=== PATIENT | female | born 1955 | race Two or more races ===

== ENCOUNTER 2017-04-10 23:48 | Emergency (ER) | payer OTHER ==
[~2017-04-10] VITALS: Ht 157.5 cm; Wt 117.9 kg
--- OUTSIDE RECORDS SUMMARY | ~2017-04-10 | XMS ---
Demographics + + + | Address | [address] | | | [place] [address] | + + + | Preferred Language | Unknown | + + + | Marital Status | Unknown | + + + | Cheondoism Affiliation | Unknown | + + + | Race | Unknown | + + + | Ethnic Group | Unknown | + + + Author + + + | Author | [facility] | + + + | Organization | [facility] | + + + | Address | [address] | | | [place] [address] | + + + | Phone | | + + + Care Team Providers + + + + | Care Card Folder Name | Role | Phone | + + + + Unavailable | Unavailable | + + + + PROBLEMS +---------+ + + +--------+ + + | Type | Condition | ICD9-CM | [id number] | Onset | Condition | SNOMED | | | | Code | Code | Dates | Status | Code | +---------+ + + +--------+ + + | Problem | Morbid | Z68.42 | | | Active | 148194514 | | | obesity | | | | | | | | with BMI | | | | | | | | of | | | | | | | | 45.0-49.9, | | | | | | | | adult | | | | | | +---------+ + + +--------+ + + | Problem | ASTHMA NOS | 493.90 | | | Active | 513484897 | +---------+ + + +--------+ + + | Problem | Depression | | F32.9 | | Active | 011713663 | +---------+ + + +--------+ + + | Problem | Asthma | | J45.909 | | Active | 653774919 | +---------+ + + +--------+ + + | Problem | Asthma | J45.901 | | | Active | 807076189 | | | with | | | | | | | | exacerbati | | | | | | | | on | | | | | | +---------+ + + +--------+ + + | Problem | GERD | | K21.9 | | Active | [id number] | | | (gastroeso | | | | | | | | phageal | | | | | | | | reflux | | | | | | | | disease) | | | | | | +---------+ + + +--------+ + + | Problem | Hyperlipid | | E78.5 | | Active | 40049415 | | | emia | | | | | | +---------+ + + +--------+ + + | Problem | Left ankle | | M25.572 | | Active | 813923451 | | | pain | | | | | | +---------+ + + +--------+ + + ALLERGIES Unknown Allergies SOCIAL HISTORY No smoking Hx information available PLAN OF CARE VITAL SIGNS MEDICATIONS + + + + + + + +--------+ | Medicati | Instruct | Dosage | Frequenc | Start | End Date | Duration | Status | | on | ions | | y | Date | | | | + + + + + + + +--------+ | Xyzal 5 | | TAKE 1 | | | | | Active | | MG | | TABLET | | | | | | | | | BY MOUTH | | | | | | | | | EVERY | | | | | | | | | EVENING. | | | | | | + + + + + + + +--------+ | Prilosec | | TAKE ONE | | | | | Active | | 20 MG | | CAPSULE | | | | | | | | | BY | | | | | | | | | MOUTH | | | | | | | | | EVERY | | | | | | | | | DAY | | | | | | + + + + + + + +--------+ | Multivit | | | | | | | Active | | robertson | | | | | | | | | Adults | | | | | | | | | 50+ | | | | | | | | + + + + + + + +--------+ | Prilosec | Orally | 1 tablet | 24h | | | 30 days | Active | | OTC 20 | Once a | | | | | | | | MG | day | | | | | | | + + + + + + + +--------+ | Proventi | Inhalati | 2 puffs | | | | 30 days | Active | | l HFA | on q4 | | | | | | | | 108 (90 | hours | | | | | | | | Base) | PRN | | | | | | | | MCG/ACT | wheezing | | | | | | | | | /SOB | | | | | | | + + + + + + + +--------+ | Serevent | Inhalati | 1 puff | 12h | 01 Apr, | | 30 days | Active | | Diskus | on Twice | | | 2016 | | | | | 50 | a day | | | | | | | | MCG/DOSE | | | | | | | | + + + + + + + +--------+ | Calcium | Orally | 1 tablet | 12h | | | | Active | | + D | Twice a | with | | | | | | | 315-200 | day | meals | | | | | | | MG-UNIT | | | | | | | | + + + + + + + +--------+ | Aspir-81 | Orally | 1 tablet | 24h | | | | Active | | 81 MG | Once a | | | | | | | | | day | | | | | | | + + + + + + + +--------+ | Nebulize | | as | | 11 Sep, | | 90 days | Active | | r/Tubing | | directed | | 2016 | | | | | /Mouthpi | | | | | | | | | brian - | | | | | | | | + + + + + + + +--------+ | Vitamin | Orally | 1 | 24h | | | | Active | | E 400 | Once a | capsule | | | | | | | UNIT | day | | | | | | | + + + + + + + +--------+ | Albutero | Inhalati | 3 ml | | 01 Apr, | | | Active | | l | on q4 | | | 2016 | | | | | Sulfate | hour PRN | | | | | | | | (2.5 | | | | | | | | | MG/3ML) | wheezing | | | | | | | | 0.083% | /SOB | | | | | | | + + + + + + + +--------+ RESULTS No Results PROCEDURES No Known procedures IMMUNIZATIONS No Known Immunizations"
--- OUTSIDE RECORDS SUMMARY | ~2017-04-10 | XMS ---
Demographics + + + | Address | [address] | | | [place] [address] | + + + | Preferred Language | Unknown | + + + | Marital Status | Unknown | + + + | Church Affiliation | Unknown | + + + | Race | Unknown | + + + | Ethnic Group | Unknown | + + + Author + + + | Author | [facility] | + + + | Organization | [facility] | + + + | Address | [address] | | | [place] [address] | + + + | Phone | | + + + Care Team Providers + + + + | Care Brakeshoe Repairer Name | Role | Phone | + + + + Unavailable | Unavailable | + + + + PROBLEMS +---------+ + + +--------+ + + | Type | Condition | ICD9-CM | [id number] | Onset | Condition | SNOMED | | | | Code | Code | Dates | Status | Code | +---------+ + + +--------+ + + | Problem | Morbid | Z68.42 | | | Active | 193220765 | | | obesity | | | [...] | 493.90 | | | Active | 509545110 | +---------+ + + +--------+ + + | Problem | Depression | | F32.9 | | Active | 667302393 | +---------+ + + +--------+ + + | Problem | Asthma | | J45.909 | | Active | 020547058 | +---------+ + + +--------+ + + | Problem | Asthma | J45.901 | | | Active | 539050653 | | | with | | | | | | | | exacerbati | | | | | | | | on | | | | | | +---------+ + + +--------+ + + | Problem | GERD | | K21.9 | | Active | 515321447 | | | (gastroeso | | | | | | | | phageal | | | | | | | | reflux | | | | | | | | disease) | | | | | | +---------+ + + +--------+ + + | Problem | Hyperlipid | | E78.5 | | Active | 39700119 | | | emia | | | | | | +---------+ + + +--------+ + + | Problem | Left ankle | | M25.572 | | Active | 741453264 | | | pain | | | | | | +---------+ + + +--------+ + + ALLERGIES Unknown Allergies SOCIAL HISTORY No smoking Hx information available PLAN OF CARE VITAL SIGNS MEDICATIONS Unknown Medications RESULTS No Results PROCEDURES No Known procedures IMMUNIZATIONS No Known Immunizations"
--- OUTSIDE RECORDS SUMMARY | ~2017-04-10 | XMS ---
Demographics + + + | Address | [address] | | | [place] [address] | + + + | Preferred Language | Unknown | + + + | Marital Status | Unknown | + + + | Moravian Affiliation | Unknown | + + + | Race | Unknown | + + + | Ethnic Group | Unknown | + + + Author + + + | Author | [facility] | + + + | Organization | [facility] | + + + | Address | [address] | | | [place] [address] | + + + | Phone | | + + + Care Team Providers + + + + | Care Artificial Flower Maker Name | Role | Phone | + + + + Unavailable | Unavailable | + + + + PROBLEMS +---------+ + + +--------+ + + | Type | Condition | ICD9-CM | [id number]-YF | Onset | Condition | SNOMED | | | | Code | Code | Dates | Status | Code | +---------+ + + +--------+ + + | Problem | ASTHMA NOS | 493.90 | | | Active | 284206345 | +---------+ + + +--------+ + + | Problem | Asthma | | J45.909 | | Active | 720680119 | +---------+ + + +--------+ + + | Problem | Hyperlipid | | E78.5 | | Active | 55355002 | | | emia | | | | | | +---------+ + + +--------+ + + | Problem | GERD | | K21.9 | | Active | 663070615 | | | (gastroeso | | | | | | | | phageal | | | | | | | | reflux | | | | | | | | disease) | | | | | | +---------+ + + +--------+ + + | Problem | Morbid | Z68.42 | | | Active | 836484514 | | | obesity | | | [...] | | M25.572 | | Active | 030291144 | | | pain | | | | | | +---------+ + + +--------+ + + | Problem | Asthma | J45.901 | | | Active | 947643334 | | | with | | | | | | | | exacerbati | | | | | | | | on | | | | | | +---------+ + + +--------+ + + ALLERGIES + + + + +--------+ | Substance | Reaction | Event Type | Date | Status | + + + + +--------+ | Penicillin | anaphylactic | Drug Allergy | Oct, | Active | + + + + +--------+ | Sulfa | hives | Drug Allergy | Oct, | Active | + + + + +--------+ SOCIAL HISTORY No smoking Hx information available PLAN OF CARE + +---------+ | Activity | Details | + +---------+ +---+ | | +---+ + + + | Follow Up | prn Reason:null | + + + VITAL SIGNS + + + + | Height | 62 in | 2016-11-08 | + + + + | Weight | 255.6 lbs | 2016-11-08 | + + + + | BMI | 46.74 kg/m2 | 2016-11-08 | + + + + | Temperature | 98.1 degrees Fahrenheit | 2016-11-08 | + + + + | Heart Rate | 84 /min | 2016-11-08 | + + + + | Blood pressure systolic | 132 mm Hg | 2016-11-08 | + + + + | Blood pressure diastolic | 92 mm Hg | 2016-11-08 | + + + + MEDICATIONS + + + + + + + +--------+ | Medicati | Instruct | Dosage | Frequenc | Start | End Date | Duration | Status | | on | ions | | y | Date | | | | + + + + + + + +--------+ | Serevent | Inhalati | 1 puff | 12h | 01 Jun, | | 30 days | Active | [...] + + +--------+ RESULTS No Results PROCEDURES + + + + + | Procedure | Date Ordered | Related Diagnosis | Body Site | + + + + + | Est Level III | Nov 08, 2016 | | | | Intermediate | | | | + + + + + | DSCHRG MED/CURRENT | Nov 08, 2016 | | | | MED MERGE | | | | + + + + + | DOC MEDS VERIFIED | Nov 08, 2016 | | | | W/PT OR RE | | | | + + + + + IMMUNIZATIONS No Known Immunizations"
--- OUTSIDE RECORDS SUMMARY | ~2017-04-10 | XMS ---
Demographics + + + | Address | [address] | | | [place] [address] | + + + | Preferred Language | Unknown | + + + | Marital Status | Unknown | + + + | Amish Affiliation | Unknown | + + + | Race | Unknown | + + + | Ethnic Group | Unknown | + + + Author + + + | Author | [facility] | + + + | Organization | [facility] | + + + | Address | [address] | | | [place] [address] | + + + | Phone | | + + + Care Team Providers + + + + | Care Lacquer Mixer Name | Role | Phone | + + + + Unavailable | Unavailable | + + + + PROBLEMS +---------+ + + +--------+ + + | Type | Condition | ICD9-CM | IHJ16-SL | Onset | Condition | SNOMED | | | | Code | Code | Dates | Status | Code | +---------+ + + +--------+ + + | Problem | Morbid | Z68.42 | | | Active | 446409346 | | | obesity | | | [...] | 493.90 | | | Active | 829874065 | +---------+ + + +--------+ + + | Problem | Depression | | F32.9 | | Active | 310300025 | +---------+ + + +--------+ + + | Problem | Asthma | | J45.909 | | Active | 323982086 | +---------+ + + +--------+ + + | Problem | Asthma | J45.901 | | | Active | 718969171 | | | with | | | | | | | | exacerbati | | | | | | | | on | | | | | | +---------+ + + +--------+ + + | Problem | GERD | | K21.9 | | Active | 194792476 | | | (gastroeso | | | | | | | | phageal | | | | | | | | reflux | | | | | | | | disease) | | | | | | +---------+ + + +--------+ + + | Problem | Hyperlipid | | E78.5 | | Active | 20614477 | | | emia | | | | | | +---------+ + + +--------+ + + | Problem | Left ankle | | M25.572 | | Active | 930551808 | | | pain | | | [...] Inhalati | 1 puff | 12h | Jun, | | 30 days | Active | | Diskus | on Twice | | | 2015 | | | | | 50 | [...]
[~2017-04-10 23:48] MED LIST: ADVAIR 250-501 EACH INH; ALBUTEROL SULF8.5 GM INH
[2017-04-11] MEDS ORDERED: SYMBICORT 16010.2 GM INH (00:06)
[2017-04-11] MEDS ORDERED: ZOFRAN ODT4 MG PO (01:38)
[2017-04-11] MEDS ORDERED: NORCO 5-325 TA1 EACH PO (01:38)
== END 2017-04-11 02:21 | disposition home or self-care (01) ==
LOC: ED 23:48
DX: N13.2 Hydronephrosis with renal and ureteral calculous obstruction (principal); J45.909 Unspecified asthma, uncomplicated; Z88.0 Allergy status to penicillin; Z88.2 Allergy status to sulfonamides; Z79.899 Other long term (current) drug therapy
CPT/HCPCS: 74176; 80053; 81001; 83690; 85025; 96374; 96375; 99284; J1885; J2270; J2405; J7040

== ENCOUNTER 2021-06-18 17:14 | Emergency (ER) | payer OTHER ==
[~2021-06-18] VITALS: Ht 157.5 cm; Wt 108.9 kg
[~2021-06-18 17:14] MED LIST changes: +NORCO 5-325 TA1 EACH PO; +SYMBICORT 16010.2 GM INH; +ZOFRAN ODT4 MG PO
[2021-06-18] MEDS ORDERED: PRAVASTATIN SOD10 MG PO (19:51)
[2021-06-18] MEDS ORDERED: MOBIC15 MG PO (19:51)
[2021-06-18] MEDS ORDERED: HYDROCHLOROTH12.5 MG PO (19:52)
[2021-06-18] MEDS ORDERED: ALLERGY REL5 MG/5 ML PO (19:54)
[2021-06-18] MEDS ORDERED: OMEPRAZOLE20 MG PO (19:55)
[2021-06-18] MEDS ORDERED: FLEET ENEMA133 ML PR (22:34)
== END 2021-06-18 23:00 | disposition home or self-care (01) ==
LOC: ED 17:14
DX: K56.41 Fecal impaction (principal); I10 Essential (primary) hypertension; J45.909 Unspecified asthma, uncomplicated; Z88.0 Allergy status to penicillin; Z88.2 Allergy status to sulfonamides; Z79.899 Other long term (current) drug therapy
CPT/HCPCS: 36415; 74177; 80053; 83690; 85025; 99284-25; Q9967

== ENCOUNTER 2021-07-08 13:47 | Emergency (ER) | payer OTHER ==
[~2021-07-08] VITALS: Ht 157.5 cm; Wt 108.9 kg
[~2021-07-08 13:47] MED LIST changes: +ALLERGY REL5 MG/5 ML PO; +FLEET ENEMA133 ML PR; +HYDROCHLOROTH12.5 MG PO; +MOBIC15 MG PO; +OMEPRAZOLE20 MG PO; +PRAVASTATIN SOD10 MG PO
--- OUTSIDE RECORDS SUMMARY | 2021-07-08 13:54 | XMS ---
PreManage Notification: BESSY ROBB Security Cosmetics Demonstrator Events No recent Security Events currently on file CRITERIA MET - [facility] - 2 Visits in 30 Days CARE PROVIDERS There are no care providers on record at this time. Murphy has no Care Guidelines for this patient. Johanna VISIT COUNT (12 MO.) 2 [facility] [facility] TOTAL 2 NOTE: Visits indicate total known visits. ED/C VISIT TRACKING (12 MO.) 07/08/2021 13:[address] [facility] [address] [place] TYPE: Emergency COMPLAINT: - LT SHOULDER INJURY 06/18/2021 17:16 [facility] [place] TYPE: Emergency COMPLAINT: - RECTAL PAIN DIAGNOSES: - Fecal impaction - Essential (primary) hypertension - Constipation, unspecified - Other petroleum terminal plant operator (current) drug therapy - Allergy status to sulfonamides - Allergy status to penicillin - Unspecified asthma, uncomplicated INPATIENT VISIT TRACKING (12 MO.) No inpatient visits to display in this time frame [email or web address]
== END 2021-07-08 15:25 | disposition home or self-care (01) ==
LOC: ED 13:47
DX: S43.402A Unspecified sprain of left shoulder joint, initial encounter (principal); J45.909 Unspecified asthma, uncomplicated; I10 Essential (primary) hypertension; Z88.0 Allergy status to penicillin; Z88.2 Allergy status to sulfonamides; Z79.899 Other long term (current) drug therapy; Z79.51 Long term (current) use of inhaled steroids; W00.0XXA Fall on same level due to ice and snow, initial encounter
CPT/HCPCS: 73030; 99283-25

== ENCOUNTER 2022-03-02 07:51 | Emergency (ER) | payer OTHER ==
[~2022-03-02] VITALS: Ht 157.5 cm; Wt 104.1 kg
[2022-03-02] MEDS ORDERED: CIPRO500 MG PO (11:54)
[2022-03-02] MEDS ORDERED: METRONIDAZOLE500 MG PO (11:54)
== END 2022-03-02 12:03 | disposition home or self-care (01) ==
LOC: ED 07:51
DX: K57.32 Diverticulitis of large intestine without perforation or abscess without bleeding (principal); J45.909 Unspecified asthma, uncomplicated; I10 Essential (primary) hypertension; Z88.0 Allergy status to penicillin; Z88.2 Allergy status to sulfonamides; Z79.899 Other long term (current) drug therapy
CPT/HCPCS: 36415; 74177; 80053; 81001; 83690; 85025; 99284-25; J7030; Q9967

== ENCOUNTER 2022-05-06 05:40 | Day surgery (SDC) | payer OTHER, MEDICARE ==
[~2022-05-06] VITALS: Ht 157.5 cm; Wt 106.4 kg
--- NOTE | ~2022-05-06 | OR ---
[facility] [address] [place], [place] [address] Draft DATE OF OPERATION: 05/06/2022 SURGEON: Jairo Camara MD PREOPERATIVE DIAGNOSIS: Severe DJD, right knee. POSTOPERATIVE DIAGNOSIS: Severe DJD, right knee. PROCEDURE PERFORMED: Right total knee arthroplasty with Calroz. EYELETTER: Neena Hauser PA-C. Neena was present and critical for all portions of procedure. ANESTHESIA: Spinal. BLOOD LOSS: 200 mL. TOURNIQUET TIME: Zero. IMPLANTS: Savage Triathlon size 3 femur, 2 tibia, 11 mm polyethylene and 32 mm patella. BRIEF HISTORY: Sabrina is a 67-year-old female with progressive worsening of severe xgts-wf-thxl osteoarthritis that is actually in both knees. She elected to proceed with the right knee 1st. Risks, benefits, and alternatives of surgery were discussed with her and she elected to proceed. DESCRIPTION OF PROCEDURE: Once consent was obtained, she was taken to the operating room. After adequate anesthesia, she was placed on the operating room table on the right hip bump. The leg was then prepped and draped in the standard sterile fashion. Standard anterior approach through a straight incision was taken through the skin and subcutaneous tissue. The mid PATIENT NAME: SABRINA ROBB OPERATIVE REPORT DATE OF : 59 REPORT #: [id number] PHYSICIAN: JAIRO CAMARA MD PCP: TEZ WOOD NP REPORT IS CONFIDENTIAL AND NOT TO BE RELEASED WITHOUT AUTHORIZATION [facility] [address] [place] [address] Draft vastus arthrotomy was performed. The MCL was elevated with a sleeve around the posteromedial corner. The infrapatellar fat pad was excised. The knee was flexed. The anterior horn of the lateral meniscus and ACL were transected. The medial meniscus was pretty much absent. Jairo Camara MD BA/JULIAL /[id number] Copies: ~ PATIENT NAME: SABRINA ROBB OPERATIVE REPORT DATE OF : 59 REPORT #: [id number] PHYSICIAN: JAIRO CAMARA MD PCP: TEZ WOOD NP REPORT IS CONFIDENTIAL AND NOT TO BE RELEASED WITHOUT AUTHORIZATION
--- NOTE | ~2022-05-06 | OR ---
[facility] [address] [place], [place] [address] Draft DATE OF OPERATION: 05/06/2022 SURGEON: Jairo Camara MD PREOPERATIVE DIAGNOSIS: Severe DJD, right knee. POSTOPERATIVE DIAGNOSIS: Severe DJD, right knee. PROCEDURE PERFORMED: Right total knee arthroplasty with Carloz. FLAG FOOTBALL COACH: Neena Hauser PA-C. ANESTHESIA: Spinal. BLOOD LOSS: 200 mL. TOURNIQUET TIME: Zero. IMPLANTS: Vish Triathlon size 3 femur, 2 tibia, 11 mm polyethylene and 32 mm patella. BRIEF HISTORY: Sabrina is a 67-year-old female, who has severe tricompartmental arthritis in both knees. She elected to proceed with the right total knee and risks and benefits of operative treatment were discussed with her and she elected to proceed. DESCRIPTION OF PROCEDURE: Once consent was obtained, she was taken to the operating room. After adequate anesthesia, she was placed on the operating room table. All downside pressure points were well padded. Hip bump was placed on the right. The leg was then prepped and draped in a standard sterile fashion. The knee was approached through a standard anterior midline incision, carried through the skin and subcutaneous tissue. The mid vastus arthrotomy was performed and the MCL was elevated with a sleeve around the posteromedial PATIENT NAME: SABRINA ROBB OPERATIVE REPORT DATE OF : 59 REPORT #: [id number] PHYSICIAN: JAIRO CAMARA MD PCP: TEZ WOOD NP REPORT IS CONFIDENTIAL AND NOT TO BE RELEASED WITHOUT AUTHORIZATION [facility] [address] [place], [place] [address] [facility] corner. The infrapatellar fat pad was excised. The anterior horn of the lateral meniscus and ACL were transected. The PCL was found to be intact. The medial meniscus was absent. The vozero computer array was then placed in the medial femoral condyle and in the proximal tibia. The leg was then registered with the computer as were the fine anatomic points of the knee. Varus and valgus testing was undertaken and a little bit of varus was added to the femur and the tibia. The prosthesis was moved proximally. Once this was completed, the robot was brought in and the four straight cuts and 2 angle cuts were made with care taken to protect the patellar tendon and MCL. The bony remnants were removed. Posterior osteophytes were removed off the femur and tibia and the trials were positioned. The knee showed full extension to about 125 degrees of flexion. She had excellent stability throughout. The patella was cut sized and drilled for a 32 mm patella. The distal femur was then drilled and the keel punch was used on the tibia. The wound was copiously irrigated with one bottle of Irrisept. The implants were then impacted starting with the tibia and the polyethylene. The femur was then impacted in position. The knee was extended and nicely loaded. The patella was clamped into position and the knee was copiously irrigated once again with Irrisept and normal saline. Periarticular soft tissues were injected with 100 mL of ropivacaine and Toradol mixture. The On-Q pain pump was percutaneously placed into the adductor canal. The arthrotomy was then closed using #2 Stratafix, subcutaneous tissue with 0-Quill and the skin with 3-0 Stratafix. The wound was sealed with LiquiBand and a dressing of Aquacel and ABD and Sabas wrap were placed. She was taken to the recovery room in satisfactory condition. All sponge, needle, and instrument counts were correct. Jairo Camara MD BA/AMINTA /[id number] Copies: ~ PATIENT NAME: SABRINA ROBB OPERATIVE REPORT DATE OF : 59 REPORT #: [id number] PHYSICIAN: JAIRO CAMARA MD PCP: TEZ WOOD NP REPORT IS CONFIDENTIAL AND NOT TO BE RELEASED WITHOUT AUTHORIZATION
[~2022-05-06 05:40] MED LIST changes: +ALLERGY RELIEF5 MG PO; +BAYER CHEWABLE81 MG PO; +CIPRO500 MG PO; +FISH OIL 1,001000 MG PO; +FLEVOXIN TABLE1 EACH PO; +GLUCOSAMINE-CH1 EA21 PO; +IRON325 M1 PO; +MAGNESIUM200 MG PO; +METRONIDAZOLE500 MG PO; +MULTI VITAMIN1 EACH PO; +OSTERA TABLET1 EACH PO; +SAMBUCUS E50 MG/5 ML PO; +[UNRECOGNIZED DRUG - OTHER] PO
[2022-05-06] MEDS ORDERED: OXYCODONE HCL5 MG PO (08:52)
[2022-05-06] MEDS ORDERED: GABAPENTIN300 MG PO (08:52)
[2022-05-06] MEDS ORDERED: ASPIRIN325 MG PO (08:54)
--- NOTE | 2022-05-06 08:54 | NUR ---
05/06/22 0854 Ella Burk 0873 PATIENT ARRIVES TO PACU AWAKE BUT DROWSY. RESP EVEN AND UNLABORED, ROOM AIR SATS >95%. DENIES PAIN OR NAUSEA.
--- NOTE | 2022-05-06 09:15 | NUR ---
RECEIVED REPORT FROM BUTANE COMPRESSOR OPERATORIAM KELLEY. PT RESTING IN BED W/NO REPORTS OF PAIN AT THIS TIME. PT IS ON RA W/O2 SATS AT 97%, NO SOB REPORTED. PT REPORTS MILD NAUSEA AT THIS TIME BUT STATES DOES NOT NEED PRN MEDICATION FOR NAUSEA. PT TAKING SMALL SIPS OF WATER AND TOLERATING W/OUT DIFFICULTY SWALLOWING. DRESSING IS C/D/I, NO SIGNS OF BLEEDING AT THIS TIME. ON-Q PUMP IN PLACE AND WNL. CRYO CUFF IN PLACE ON RT KNEE. HEELS ELEVATED ON ROLLED UP TOWELS AT THIS TIME W/FOOT PUMPS IN PLACE. IV SITE WNL, FLUIDS INFUSING DIRECTED. PT IS A&O X4. PT STATES N/T IN TOES ON RT EXTREMITY, COLOR IS PINK/WARM/DRY. CALL LIGHT WITHIN REACH, PT STATES NO FURTHER NEEDS AT THIS TIME.
--- NOTE | 2022-05-06 10:00 | NUR ---
ANSWERED PT CALL LIGHT D/T NEED TO VOID. 1PA ASSIST TO BEDSIDE COMMODE W/STAND AND PIVOT, PT TOLERATED WELL. GAIT WAS SLIGHTLY UNSTEADY BUT STRENGTH INTACT IN LEFT LEG FOR PIVOTING. PT REPORTS NO DIZZINESS W/AMBULATION. PT NOW REPOSITIONED IN BED BY SELF. CRYO CUFF, FOOT PUMPS, HEEL PROTECTORS, PAO HOSE IN PLACE AT THIS TIME. PT STATES QUIVERING OF LOWER CHIN AT THIS TIME. PT STATES PAIN 12/10 IN RT LEG FROM HIP TO ANKLE, PRN OXY GIVEN (SEE EMAR). IV TXA STARTED AT THIS TIME, SITE WNL. PT REPORTS NAUSEA HAS RESOLVED. DRESSING REMAINS C/D/I, NO SIGNS OF BLEEDING. VSS. WARM BLANKET AND DONOVAN HUGGER PROVIDED FOR PT COMFORT. CALL LIGHT WITHIN REACH, NO FURTHER NEEDS AT THIS TIME.
--- NOTE | 2022-05-06 11:06 | NUR ---
IN PT ROOM FOR JUVENILE COURT JUDGE, SENNA GIVEN, EDUCATION PROVIDED, PT STATES VERBAL UNDERSTANDING. 1PA STAND/PIVOT TO BEDSIDE COMMODE. PT ABLE TO TOLERATE MINIMAL RT LEG WEIGHT, GAIT SLIGHTLY UNSTEADY BUT GOOD STRENGTH IN LEFT LEG. 300 ML OUTPUT AT THIS TIME. PT REPORTS NO DIZZINESS, INCREASED PAIN, NAUSEA W/MOVEMENT. PT NOW BACK IN BED. IV SITE SALINE LOCKED, SITE WNL. FOOT PUMPS, HEEL PROTECTORS, CRYO CUFF IN PLACE. PT REPORTS PAIN HAS RESOLVED TO 6/10 AT THIS TIME AND IS TOLERABLE. PT STATES NAUSEA "COMES AND GOES", STATES DOESNT REQUIRE PRN MEDICATION AT THIS TIME FOR NAUSEA. KENDALL PROVIDED, PT TOLERATING WELL, NO DIFFICULTY SWALLOWING.
--- NOTE | 2022-05-06 11:20 | NUR ---
IN PT ROOM FOR VS AND ASSESSMENT. PT CONSUMED ENTIRE JELLO, TOLERATED WELL, NO NAUSEA AT THIS TIME. PT REPORTS PAIN HAS RECEEDED TO 4/10, NO NEED FOR PRN PAIN MED AT THIS TIME PER PT (RT KNEE). PT REPORTS NO N/T, DIZZINESS, SOB AT THIS TIME. VSS. DRESSING IS C/D/I, NO SIGNS OF BLEEDING AT THIS TIME. CRYO CUFF, ON-Q PUMP, FEET PUMPS, AND HEEL PROTECTORS IN PLACE. PT STILL TAKING SIPS OF WATER AND TOLERATING WELL. IV SITE SALINE LOCKED, SITE WNL. CALL LIGHT WITHIN REACH, NO FURTHER NEEDS AT THIS TIME PER PT, NOW AT BEDSIDE.
--- NOTE | 2022-05-06 12:45 | NUR ---
IN PT ROOM FOR ASSESSMENT, VSS, 1PA TO BATHROOM. PT REPORTS PAIN 2/10 AT THIS TIME, STATES NO NEED FOR PRN PAIN MED AT THIS TIME. PT REPORTS NO NAUSEA, N/T, DIZZINESS, SOB. DRESSING IS C/D/I, NO SIGNS OF BLEEDING AT THIS TIME. 1PA, STAND/PIVOT TO BEDSIDE COMMODE. PT GAIT SLIGHTLY UNSTEADY. URINE VOID, QUANT SUFFICIENT. ASSISTED W/PUTTING ON UNDERWEAR AT THIS TIME. PT NOW RESTING IN BED. ON-Q PUMP, CRYO CUFF, HEEL PROTECTORS, FEET PUMPS IN PLACE. IV SITE WNL, SALINE LOCKED. PT CONSUMED 100% OF SANDWICH. CALL LIGHT WITHIN REACH, NO FURTHER NEEDS AT THIS TIME. AT BEDSIDE.
--- NOTE | 2022-05-06 13:50 | NUR ---
1350-PHYSICAL THERAPY IN PATIENTS ROOM. 1409-PATIENT LEAVES WITH PHYSICAL THERAPY.
--- NOTE | 2022-05-06 14:52 | NUR ---
1420-PATIENT BACK TO ROOM FROM PT.
--- NOTE | 2022-05-06 15:52 | NUR ---
1PA FOR PT TO PUT CLOTHES ON. PT REPORTS NO NAUSEA OR PAIN AT THIS TIME REQUIRING PRN MEDS. IV SITE DC'ED, CATHETER TIP INTACT, GAUZE AND COBAN IN PLACE. DRESSING IS C/D/I, NO SIGNS OF BLEEDING AT THIS TIME, ON-Q PUMP IN PLACE. DISCHARGE EDUCATION PROVIDED TO AND PT. ALL QUESTIONS ANSWERED, NO FURTHER QUESTIONS. PT TRANSPORTED VIA WHEELCHAIR TO CAR THAT PULLED TO FRONT. ALL BELONGINGS SENT WITH PT IN GREEN PERSONAL BELONGINGS BAG. NO FURTHER NEEDS STATED.
--- NOTE | 2022-05-07 16:21 | NUR ---
PATIENT CALL BACK COMPLETE. PATIENT STATES "IM GREAT BESIDES THE FACT IM DYING." PATIENT SAYS ON Q PUMP DISCONNECTED. KURT AWARE. PATIENT STARTED TAKING OXYCODONE. PATIENT WILL CALL BACK WITH ANY QUESTIONS OR CONCERNS NO FUTHER NEEDS.
== END 2022-05-06 15:45 | disposition home or self-care (01) ==
LOC: DS 05:40
PROVIDERS: ATTEND Specialist
PROC: 0SRC0JZ Replacement of Right Knee Joint with Synthetic Substitute, Open Approach (ICD-10-PCS; principal; 2022-05-06 07:00)
DX: M17.11 Unilateral primary osteoarthritis, right knee (principal); I10 Essential (primary) hypertension; J45.909 Unspecified asthma, uncomplicated; E66.09 Other obesity due to excess calories; E78.00 Pure hypercholesterolemia, unspecified; Z68.41 Body mass index [BMI] 40.0-44.9, adult
CPT/HCPCS: 36415; 80053; 85025; 97161; A9270; J0690; J1100; J1885; J2001; J2250; J2704; J2795; J7121

== ENCOUNTER 2023-03-27 13:05 | Day surgery (SDC) | payer MEDICARE, OTHER ==
[~2023-03-27] VITALS: Ht 157.5 cm; Wt 112.5 kg
[~2023-03-27 13:05] MED LIST changes: +ASPIRIN325 MG PO; +CEFUROXIME250 MG PO; +GABAPENTIN300 MG PO; +MELOXICAM15 MG PO; -MOBIC15 MG PO; +OXYCODONE HCL5 MG PO; +PROBIOTIC1 EAC1 PO; +XARELTO10 MG PO
[2023-03-27 13:25] LABS: BILIRUBIN, URINE NEGATIVE (negative); BLOOD/HGB, URINE NEGATIVE (Negative); KETONE, URINE NEGATIVE (Negative); LEUK ESTERASE, URINE NEGATIVE (negative); NITRITE, URINE NEGATIVE (negative); PH, URINE 6.5 (5-7)
[2023-03-27 13:32] LABS: BACTERIA, URINE NONE SEEN /hpf (negative); CASTS, URINE NONE SEEN \\lpf; COLLECTION TYPE, URINE CLEAN CATCH; CRYSTALS, URINE NONE SEEN (0-1+); EPITHELIAL CELLS, URINE SQUAMOUS 1+ /lpf (0-1+); RED BLOOD CELLS, URINE 0-1 /hpf (0-5); REFLEX CULTURE, URINE No (No); WHITE BLOOD CELLS, URINE 0-1 /HPF (0-5)
--- NOTE | 2023-03-27 14:04 | NUR ---
PATIENT BACK IN DAY SURGERY ROOM FROM PROCEDURE. PATIENT GETTING DRESSED.
--- NOTE | 2023-03-27 14:10 | NUR ---
1409: PATIENT DRESSED. WALKING INDEPENDENTLY. STATES FEELS READY TO GO HOME. PATIENT DISCHARGED TO HOME AMBULATORY.
--- NOTE | 2023-03-27 14:50 | OR ---
[facility] [address], [place] [address] Signed DATE OF OPERATION: 03/27/2023 SURGEON: Alverto Ledbetter MD PREOPERATIVE DIAGNOSES: 1. Microscopic hematuria. 2. Nocturia. 3. Urinary frequency with urgency. POSTOPERATIVE DIAGNOSES: 1. Microscopic hematuria. 2. Nocturia. 3. Urinary frequency with urgency. 4. Normal cystoscopy. NAME OF PROCEDURE: Diagnostic cystourethroscopy. ANESTHESIA: 10 mL of 2% lidocaine gel. DRAINS: None. SPECIMENS: Urine sent for urinary cytology testing. COMPLICATIONS: None. INDICATIONS FOR PROCEDURE: Ms. Robb is a very pleasant 67-year-old female, who recently presented to me upon referral from [facility] for evaluation of microhematuria and urinary incontinence symptoms. The patient reported no prior history of gross hematuria, however, she had been dealing with daytime urinary frequency as well as nocturia times 3 to 4. She had never taken any medications for her bladder symptoms before and she is not very interested in taking medicines at this time. On her last office visit, I recommended that she decrease her oral acid intake and she reports today that her symptoms have improved somewhat on the low acid diet. She is still not interested in any other additional management of her what is potentially an overactive bladder. Electronically Signed By: ALVERTO LEDBETTER MD 03/27/23 1450 PATIENT NAME: BESSY ROBB OPERATIVE REPORT DATE OF : 59 REPORT #: [id number] PHYSICIAN: ALVERTO LEDBETTER MD PCP: [facility] NP REPORT IS CONFIDENTIAL AND NOT TO BE RELEASED WITHOUT AUTHORIZATION [facility] [address], [place] [address] Signed OPERATIVE FINDINGS: 1. On cystoscopy, there was no evidence of any suspicious masses, lesions, or stones. Bilateral ureteral orifices are in their normal anatomic location and effluxing clear urine. There is no evidence of any bladder wall trabeculation and overall her bladder wall appears normal with no obvious bladder wall irritation present. 2. Ureteroscopy reveals a normal urethra and bladder neck. There is no evidence of any intrinsic sphincter deficiency. DESCRIPTION OF PROCEDURE: After informed consent was obtained, the patient was taken back to the operating room. She was transferred from the [facility] to the operating room table, where lidocaine gel was injected into her urethra after proper preparation was performed. A 17-Indonesian disposable diagnostic cystoscope was inserted through the urethra and into her bladder under direct visualization. Panendoscopic views of the bladder were then obtained including the lateral gamboa, floor, and trigone areas. Please see the above findings. I then retroflexed and took a good look at her bladder neck and did not find anything suspicious. Ureteroscopy also was performed which revealed a normal internal sphincter. The cystoscope was removed from the patient's bladder and the procedure was terminated. The patient tolerated the procedure well without any complication. She will now be transferred to the postanesthesia care unit in stable condition. DISPOSITION: I discussed the details of today's cystoscopy with the patient today and answered all of her questions. I reassured her that there is no abnormal or any significant source of her intermittent microscopic hematuria. However, I do suspect that she might be experiencing mild bladder irritability on occasion and that she needs to continue to stay away from high acid foods and beverages. Her urine will be sent for cytology today to complete her formal hematuria workup. She had already undergone a contrasted CT scan earlier this year, which was negative other than the presence of small single bilateral renal calculi. If her urinary cytology is abnormal, she will be notified, otherwise she will follow up on an as needed basis. Alverto Ledbetter MD AR/MODL /[id number] Electronically Signed By: ALVERTO LEDBETTER MD 03/27/23 1450 PATIENT NAME: BESSY ROBB OPERATIVE REPORT DATE OF : 59 REPORT #: [id number] PHYSICIAN: ALVERTO LEDBETTER MD PCP: [facility] NP REPORT IS CONFIDENTIAL AND NOT TO BE RELEASED WITHOUT AUTHORIZATION [facility] [address] [place] [id number] Signed Copies: ~ Electronically Signed By: ALVERTO LEDBETTER MD 03/27/23 1450 PATIENT NAME: BESSY ROBB OPERATIVE REPORT DATE OF : 59 REPORT #: [id number] PHYSICIAN: ALVERTO LEDBETTER MD PCP: [facility] NP REPORT IS CONFIDENTIAL AND NOT TO BE RELEASED WITHOUT AUTHORIZATION
== END 2023-03-27 18:00 | disposition home or self-care (01) ==
LOC: OPS 13:05 → DS 13:05 → OPS 14:00
PROVIDERS: ATTEND Urology
PROC: 0TJB8ZZ Inspection of Bladder, Via Natural or Artificial Opening Endoscopic (ICD-10-PCS; principal; 2023-03-27 14:00)
DX: R31.29 Other microscopic hematuria (principal); R35.0 Frequency of micturition; R35.1 Nocturia; R39.15 Urgency of urination; F17.210 Nicotine dependence, cigarettes, uncomplicated; E66.01 Morbid (severe) obesity due to excess calories; Z88.2 Allergy status to sulfonamides; Z88.1 Allergy status to other antibiotic agents; Z79.82 Long term (current) use of aspirin; Z79.899 Other long term (current) drug therapy; Z68.42 Body mass index [BMI] 45.0-49.9, adult
CPT/HCPCS: 81001; C1747

== ENCOUNTER 2024-04-23 08:50 | Day surgery (SDC) | payer MEDICARE, OTHER ==
[~2024-04-23] VITALS: Ht 157.5 cm; Wt 113.2 kg
[~2024-04-23 08:50] MED LIST changes: +CEFAZOLIN SODIUM 2 GM/20 ML SYR IV SCH; +IBLOOD GLUCOSE TEST STRIP 1 EA TEST VI PRN; +LACTATED RINGER'S 1,000 ML IV SCH; +LIDOCAINE HCL 1% 5 ML SDV INJ ONE; +OXYBUTYNIN CHLOR5 M1 PO
[2024-04-23 09:11] VITALS: BP 122/76
[2024-04-23] MEDS ORDERED: VITAMIN D3125 MC2 PO (09:14)
[2024-04-23] MEDS ORDERED: FISH OIL 1,001000 MG PO (09:15)
[2024-04-23 09:20] VITALS: BP 122/76
[2024-04-23] MEDS ORDERED: LIDOCAINE HCL 0.5% 50 ML SDV ONE (09:37)
[2024-04-23] MEDS ORDERED: MIDAZOLAM HCL 2 MG/2 ML VIAL ONE (09:38)
[2024-04-23] MEDS ORDERED: KETOROLAC TROMETHAMINE 30 MG/ML VIAL ONE (09:38)
[2024-04-23] MEDS ORDERED: ondansetron HCL 4 MG/2 ML VIAL ONE (09:38)
[2024-04-23] MEDS ORDERED: propofoL 200 MG/20 ML VIAL ONE (09:38)
[2024-04-23] MEDS ORDERED: fentaNYL citrate 100 MCG/2 ML VIAL ONE (09:38)
[2024-04-23] MEDS ORDERED: DEXAMETHASONE SOD PHOS 4 MG/ML VIAL ONE (09:38)
--- NOTE | 2024-04-23 09:58 | NUR ---
ASSISTED PT TO REST ROOM. PT AMBULATED WELL ON OWN. ASSISTED PT BACK TO BED AND REAPPLIED SCDS. PT STATED NO ADDITIONAL NEEDS AT THIS TIME. CALL LIGHT IS WITHIN REACH.
[2024-04-23] MEDS ORDERED: HYDROCODONE/ACETA 5/325 TAB PO PRN (10:15)
[2024-04-23] MEDS ORDERED: HYDROCODON-ACE1 EA10 PO (10:58)
--- NOTE | 2024-04-23 11:11 | NUR ---
04/23/24 1111 Sheets,Debra 1057 PT ARRIVED TO PACU WAKE AND ON RA, VSS. PT DENIES PAIN AND NAUSEA. PT REPORTS RIGHT HAND IS "PINS AND NEEDLES" HOB INCREASED SLIGHTLY. 1108 PT SIPPING WATER AND SITTING IN HIGH FOWLERS. PLAN OF CARE DISCUSSED.
[2024-04-23 11:25] VITALS: BP 118/67
--- NOTE | 2024-04-24 09:20 | OR ---
[facility] [address], [place] [address] Signed DATE OF OPERATION: 04/23/2024 SURGEON: Jairo Camara MD PREOPERATIVE DIAGNOSIS: Carpal tunnel syndrome, right. POSTOPERATIVE DIAGNOSIS: Carpal tunnel syndrome, right. PROCEDURE PERFORMED: Carpal tunnel release, right. ELECTRONIC TESTER: None. ANESTHESIA: Bernie block. TOURNIQUET TIME: 15 minutes. BRIEF HISTORY: Sabrina is a 68-year-old female with progressive numbness and tingling in her hand. Risks and benefits of operative treatment were discussed with her and she elected to proceed. Once consent was obtained, she was taken to the operating room and left on the day surgery bed. A hand table was brought in. The hand was prepped and draped in a standard sterile fashion after the [place] block was established. The carpal tunnel was approached through a 1.5 cm transverse incision in the distal wrist crease, this was carried through skin and subcutaneous tissue. The palmaris longus was identified, retracted, and protected. Under loupe magnification, the transverse carpal ligament was identified and dissected free of overlying soft tissue proximally and distally. It was released approximately about a centimeter and distally to the distal extent, this was done under direct vision. This was then palpated using a [place] and found to be completely released. The wound was copiously irrigated with normal saline and closed with 3-0 nylon, injected with 4 mL of 0.25% plain Marcaine. The wound was dressed with bacitracin, Adaptic, 4 x 8's, and gauze. She tolerated the procedure well. All sponge, needle, and instrument counts were correct. Electronically Signed By: JAIRO CAMARA MD 04/24/24 0920 PATIENT NAME: SABRINA ROBB OPERATIVE REPORT DATE OF : 59 REPORT #: [id number] PHYSICIAN: JAIRO CAMARA MD PCP: [facility] NP REPORT IS CONFIDENTIAL AND NOT TO BE RELEASED WITHOUT AUTHORIZATION [address] [address] Signed Jairo Camara MD BA/JULIAL /[id number] Copies: ~ Electronically Signed By: JAIRO CAMARA MD 04/24/24 0920 PATIENT NAME: SABRINA ROBB OPERATIVE REPORT DATE OF : 59 REPORT #: [id number] PHYSICIAN: JAIRO CAMARA MD PCP: [facility] NP REPORT IS CONFIDENTIAL AND NOT TO BE RELEASED WITHOUT AUTHORIZATION
== END 2024-04-23 11:37 | disposition home or self-care (01) ==
LOC: DS 08:50
PROVIDERS: ATTEND Specialist
PROC: 01N50ZZ Release Median Nerve, Open Approach (ICD-10-PCS; principal; 2024-04-23 11:15)
DX: G56.01 Carpal tunnel syndrome, right upper limb (principal); I10 Essential (primary) hypertension; E78.00 Pure hypercholesterolemia, unspecified; J44.9 Chronic obstructive pulmonary disease, unspecified; Z79.899 Other long term (current) drug therapy; Z88.0 Allergy status to penicillin; Z88.2 Allergy status to sulfonamides; Z90.710 Acquired absence of both cervix and uterus
CPT/HCPCS: 01810; J0690; J1100; J1885; J2250; J2405; J2704; J3010; J7121

== ENCOUNTER 2024-07-23 08:57 | Day surgery (SDC) | payer MEDICARE, OTHER ==
--- NOTE | 2024-07-15 14:03 | NUR ---
PHONE CALL TO PT NO ANSWER LEFT MESSAGE.
[~2024-07-23] VITALS: Ht 157.5 cm; Wt 113.6 kg
[~2024-07-23 08:57] MED LIST changes: +HYDROCODON-ACE1 EA10 PO; +VITAMIN D3125 MC2 PO
[2024-07-23 09:18] VITALS: BP 134/79
[2024-07-23] MEDS ORDERED: DEXAMETHASONE SOD PHOS 4 MG/ML VIAL ONE (10:08)
[2024-07-23] MEDS ORDERED: propofoL 200 MG/20 ML VIAL ONE (10:08)
[2024-07-23] MEDS ORDERED: LIDOCAINE HCL 0.5% 50 ML SDV ONE ×2 (10:08→10:13)
[2024-07-23] MEDS ORDERED: ondansetron HCL 4 MG/2 ML VIAL ONE (10:08)
[2024-07-23] MEDS ORDERED: KETOROLAC TROMETHAMINE 30 MG/ML VIAL ONE (10:08)
[2024-07-23] MEDS ORDERED: fentaNYL citrate 100 MCG/2 ML VIAL ONE (10:08)
[2024-07-23] MEDS ORDERED: HYDROCODON-ACE1 EA10 PO (11:09)
[2024-07-23] MEDS ORDERED: HYDROCODONE/ACETA 5/325 TAB PO PRN (11:15)
[2024-07-23 14:58] VITALS: BP 118/83
--- NOTE | 2024-07-23 15:22 | NUR ---
07/23/24 1522 Sheets,Debra 1109 PT ARRIVED TO PACU ON 6L VIA MASK, PT DROWSY BUT DENIES CONCERNS AND EASILY FALLS BACK TO SLEEP. RESP EVEN AND UNLABORED. VSS. 1111 O2 REMOVED. ICE IN PLACE ON LEFT WRIST. 1140 HOB INCREASED AND PT SIPPING WATER. EDUCAITONG GIVEN ON SLING FOR BLOCK. PT REPORTS NUMBNESS IN HAND. 1200 PT DRESSED HERSELF AND DC INSTRUCTIONS GIVEN. ALL QUESTIONS ANSWERED. PAPERWORK GIVEN AND PT DRESSED HERSELF. SLING IN PLACE WITH ICE. PT VERBALIZED UNDERSTANDING AND VSS. PT DC VIA WC TO .
--- NOTE | 2024-07-26 07:13 | OR ---
[facility] [address], [place] [address] Signed DATE OF OPERATION: 07/23/2024 SURGEON: Jairo Camara MD PREOPERATIVE DIAGNOSIS: Carpal tunnel syndrome, left. POSTOPERATIVE DIAGNOSIS: Carpal tunnel syndrome, left. PROCEDURE PERFORMED: Left carpal tunnel release. COVERAGE ANALYST: None. ANESTHESIA: Bernie block. TOURNIQUET TIME: 14 minutes. BRIEF HISTORY: Sabrina is a 69-year-old female with progressive worsening carpal tunnel symptoms in both hands. She had a right release which went well and wished to proceed with a left. Risks, benefits, and alternatives of surgery were discussed and she understood and wished to proceed. DESCRIPTION OF PROCEDURE: Once consent was obtained, she was taken to the operating room. After adequate anesthesia, she was left on the surgery bed. Downside pressure points were well padded. A hand table was brought in. After Bernie block was established, then the arm was prepped and draped in standard sterile fashion and the carpal tunnel was approached through a 1.5 cm incision in the distal wrist crease. This was carried through skin and subcutaneous tissue. The palmaris longus was identified, retracted and protected. Transverse carpal ligament was dissected of overlying soft tissue. Under loupe magnification this was done proximally and distally. It was then released proximally a cm and distally to the distal extent again under direct loupe magnification. This was palpated using a [place] and found to be completely released. The wound was copiously irrigated with normal saline, closed with 3-0 nylon. The wound was injected with 6 mL Electronically Signed By: JAIRO CAMARA MD 07/26/24 0713 PATIENT NAME: SABRINA ROBB OPERATIVE REPORT DATE OF : 59 REPORT #: [id number] PHYSICIAN: JAIRO CAMARA MD PCP: [facility] NP REPORT IS CONFIDENTIAL AND NOT TO BE RELEASED WITHOUT AUTHORIZATION [facility] [address] [facility] [place] [address] Signed 0.25% plain Marcaine. The wound was then dressed with bacitracin, Adaptic, 4 x 8s, and gauze. She tolerated the procedure well. All sponge, needle, and instrument counts were correct. Jairo Camara MD BA/MODL /[id number] Copies: ~ Electronically Signed By: JAIRO CAMARA MD 07/26/24 0713 PATIENT NAME: SABRINA ROBB OPERATIVE REPORT DATE OF : 59 REPORT #: [id number] PHYSICIAN: JAIRO CAMARA MD PCP: [facility] NP REPORT IS CONFIDENTIAL AND NOT TO BE RELEASED WITHOUT AUTHORIZATION
== END 2024-07-23 12:00 | disposition home or self-care (01) ==
LOC: DS 08:57
PROVIDERS: ATTEND Specialist
PROC: 01N50ZZ Release Median Nerve, Open Approach (ICD-10-PCS; principal; 2024-07-23 12:00)
DX: G56.02 Carpal tunnel syndrome, left upper limb (principal); J44.89 Other specified chronic obstructive pulmonary disease; I10 Essential (primary) hypertension; E78.00 Pure hypercholesterolemia, unspecified; E66.9 Obesity, unspecified; Z88.0 Allergy status to penicillin; Z88.2 Allergy status to sulfonamides; Z88.1 Allergy status to other antibiotic agents; Z79.82 Long term (current) use of aspirin; Z79.899 Other long term (current) drug therapy
CPT/HCPCS: 01810; J0690; J1100; J1885; J2405; J2704; J3010; J7121